=== PATIENT | male | born 1950 | race Caucasian/White ===

== ENCOUNTER 2021-12-20 11:11 | Outpatient (CLI) | payer MEDICARE, BC ==
[2021-12-20 12:31] LABS: #Basophils 0.1 10x3/uL (0.0-0.2); #Eosinphils 0.3 10x3/uL (0.0-0.5); #Monocytes 0.7 10x3/uL (0.0-1.1); #Neutrophils 4.4 10x3/uL (1.5-8.4); %Basophils 0.8 % (0.0-2.0); %Eosinophils 3.9 % (0.0-6.0); %Lymphocytes 24.4 % (18.0-47.0); %Monocytes 9.3 % (0.0-10.0); %Neutrophils 61.3 % (40.0-75.0); Hemoglobin 15.8 g/dL (13.5-17.5); Mean Corpuscular HGB CONC 33.5 g/dL (32.0-36.0); Mean Corpuscular Hemoglobin 31.4 pg (27.0-33.0); Mean Corpuscular Volume 93.8 fl (81.2-95.1); Mean Platelet Volume 9.6 fl (7.4-10.4); Platelet Count 271 10x3/uL (150-450); RBC Distribution Width 12.7 % (11.5-14.5); Red Blood Cell (RBC) Count 5.03 10x6/uL (4.32-5.72); White Blood Cell (WBC) Count 7.2 10x3/uL (3.5-10.5)
[2021-12-20 12:48] LABS: Anion Gap 14 mmol/L (10-20); BUN (Urea Nitrogen) 35 mg/dL (8.4-25.7); Calc. Creatinine Clearance 0 mL/min (70-130); Calcium 9.3 mg/dL (7.8-10.44); Carbon Dioxide 28 mmol/L (23-31); Chloride 102 mmol/L (98-107); Glucose 108 mg/dL (83-110); Potassium 5.1 mmol/L (3.5-5.1); Sodium 139 mmol/L (136-145)
[2021-12-20 22:06] LABS: SARS-CoV-2 PCR by NAA Not Detected (NotDetected)
== END 2021-12-20 11:12 | disposition home or self-care (01) ==
LOC: LABBT 11:11
PROVIDERS: ATTEND Orthopaedic Surgery
DX: Z01.818 Encounter for other preprocedural examination (principal); M23.42 Loose body in knee, left knee; Z20.822 Contact with and (suspected) exposure to COVID-19
CPT/HCPCS: 80048; 85025; 93005; U0003; U0005; 93010

== ENCOUNTER 2021-12-25 09:01 | Day surgery (SDC) | payer MEDICARE, BC ==
[2021-12-21 10:55] VITALS: BMI 19.5
[2021-12-25] MEDS ORDERED: Midazolam HCl 2 mg/2 ml Vial ONE ×2 (09:39→10:00)
[2021-12-25] MEDS ORDERED: Fentanyl 100 MCG/2 ML VIAL ONE (10:00)
[2021-12-25] MEDS ORDERED: Lidocaine 2% w/Epinephrine 1:200K 20 ML VIAL ONE ×2 (10:01→11:16)
[2021-12-25] MEDS ORDERED: Fentanyl 250 MCG/5 ML VIAL ONE (10:57)
[2021-12-25] MEDS ORDERED: ceFAZolin (BATCH) 2 GM/100 ML BAG ONE (11:03)
[2021-12-25] MEDS ORDERED: Bupivacaine HCl 0.5%/Epinephrine 1:200,000/PF 30 ml Vial ONE (11:16)
[2021-12-25] MEDS ORDERED: ePHEDrine 50 MG/ML VIAL ONE (11:16)
[2021-12-25] MEDS ORDERED: Ondansetron PF 4 MG/2 ML Vial ONE ×2 (11:16→11:33)
[2021-12-25] MEDS ORDERED: PROPOFOL 200 MG/20 ML VIAL ONE (11:16)
[2021-12-25] MEDS ORDERED: ePHEDrine Sulfate 50 MG/10 ML VIAL ONE (11:33)
== END 2021-12-25 14:22 | disposition home or self-care (01) ==
LOC: SDC 09:01
PROVIDERS: ATTEND Orthopaedic Surgery
PROC: 0SBD4ZZ Excision of Left Knee Joint, Percutaneous Endoscopic Approach (ICD-10-PCS; principal; 2021-12-25)
PROC: 0SCD4ZZ Extirpation of Matter from Left Knee Joint, Percutaneous Endoscopic Approach (ICD-10-PCS; 2021-12-25)
DX: M23.8X2 Other internal derangements of left knee (principal); M23.42 Loose body in knee, left knee; E78.5 Hyperlipidemia, unspecified; M19.90 Unspecified osteoarthritis, unspecified site; Z79.899 Other long term (current) drug therapy
CPT/HCPCS: J0690; J2250; J2405; J2704; J3010; J3490

== ENCOUNTER 2023-06-03 09:17 | Outpatient (CLI) | payer MEDICARE, BC ==
[2023-06-03 11:49] LABS: #Basophils 0.1 10x3/uL (0.0-0.2); #Eosinphils 0.1 10x3/uL (0.0-0.5); #Monocytes 0.6 10x3/uL (0.0-1.1); #Neutrophils 2.4 10x3/uL (1.5-8.4); %Basophils 1.6 % (0.0-2.0); %Lymphocytes 27.3 % (18.0-47.0); %Monocytes 13.3 % (0.0-10.0); %Neutrophils 54.8 % (40.0-75.0); Hematocrit 47.6 % (38.8-50.0); Hemoglobin 15.9 g/dL (13.5-17.5); Mean Corpuscular HGB CONC 33.4 g/dL (32.0-36.0); Mean Corpuscular Hemoglobin 31.7 pg (27.0-33.0); Mean Platelet Volume 9.5 fl (7.4-10.4); Platelet Count 240 10x3/uL (150-450); RBC Distribution Width 12.9 % (11.5-14.5); Red Blood Cell (RBC) Count 5.01 10x6/uL (4.32-5.72); White Blood Cell (WBC) Count 4.4 10x3/uL (3.5-10.5)
[2023-06-03 12:05] LABS: ALT (SGPT) 23 U/L (8-55); AST (SGOT) 31 U/L (5-34); Albumin 3.9 g/dL (3.4-4.8); Alkaline Phosphatase 74 U/L (40-110); Anion Gap 14 mmol/L (10-20); BUN (Urea Nitrogen) 28 mg/dL (8.4-25.7); Bilirubin, Total 0.6 mg/dL (0.2-1.2); Calc. Creatinine Clearance 0 mL/min (70-130); Carbon Dioxide 26 mmol/L (23-31); Chloride 101 mmol/L (98-107); Estimated GFR 93; Globulin 2.6 g/dL (2.4-3.5); Glucose 95 mg/dL (83-110); Potassium 4.6 mmol/L (3.5-5.1); Protein, Total 6.5 g/dL (5.8-8.1); Sodium 136 mmol/L (136-145)
== END 2023-06-03 09:18 | disposition home or self-care (01) ==
LOC: LABBT 09:17
PROVIDERS: ATTEND Surgery
DX: Z01.818 Encounter for other preprocedural examination (principal); K42.9 Umbilical hernia without obstruction or gangrene; K40.20 Bilateral inguinal hernia, without obstruction or gangrene, not specified as recurrent
CPT/HCPCS: 80053; 85025; 93005; 93010

== ENCOUNTER 2023-06-07 06:56 | Day surgery (SDC) | payer MEDICARE, BC ==
[2023-06-03 10:07] VITALS: BMI 19.8
[2023-06-07] MEDS ORDERED: Midazolam HCl 2 mg/2 ml Vial ONE (07:39)
[2023-06-07] MEDS ORDERED: fentaNYL PF 100 MCG/2 ML SYRINGE ONE (07:39)
[2023-06-07] MEDS ORDERED: Bupivacaine 0.25% HCL 30 ML VIAL ONE (07:40)
[2023-06-07] MEDS ORDERED: EPINEPHrine 1 MG/ML AMP ONE (07:40)
[2023-06-07] MEDS ORDERED: SUGAMMADEX SODIUM 200 MG/2 ML VIAL ONE (07:48)
[2023-06-07] MEDS ORDERED: CEFAZOLIN 2 GM VIAL ONE (07:48)
[2023-06-07] MEDS ORDERED: Lidocaine 4% Topical Sol 50 ML BOT ONE (07:48)
[2023-06-07] MEDS ORDERED: Sodium Chloride 0.9% 100 ML ONE (07:48)
[2023-06-07] MEDS ORDERED: PHENYLEPHRINE-NS 100 MCG/ML 10 ML SYRINGE ONE (07:57)
[2023-06-07] MEDS ORDERED: Ondansetron PF 4 MG/2 ML Vial ONE (07:57)
[2023-06-07] MEDS ORDERED: PROPOFOL 200 MG/20 ML VIAL ONE (07:57)
[2023-06-07] MEDS ORDERED: Lidocaine 1% PF 5 ML VIAL ONE (07:57)
[2023-06-07] MEDS ORDERED: Dexamethasone 20 MG/5 ML VIAL ONE (07:57)
[2023-06-07] MEDS ORDERED: Rocuronium Bromide 10 MG/ML (10ML VIAL) ONE (07:57)
[2023-06-07] MEDS ORDERED: fentaNYL 50 mcg/mL 1 mL Vial ONE ×2 (09:46→09:54)
== END 2023-06-07 12:43 | disposition home or self-care (01) ==
LOC: SDC 06:56
PROVIDERS: ATTEND Surgery
PROC: 0YU Anatomical Regions, Lower Extremities, Supplement (ICD-10-PCS; principal; 2023-06-07)
DX: K42.9 Umbilical hernia without obstruction or gangrene (principal); K40.20 Bilateral inguinal hernia, without obstruction or gangrene, not specified as recurrent; E78.5 Hyperlipidemia, unspecified; Z96.641 Presence of right artificial hip joint; Z98.890 Other specified postprocedural states; Z79.899 Other long term (current) drug therapy
CPT/HCPCS: 49650; A4314; C1781 ×2; J3010; J0171; J1100; J2250; J2405; J2704; J3490; S0020

== ENCOUNTER 2025-04-22 08:47 | Outpatient (CLI) | payer MEDICARE | END 2025-04-22 08:48 | disposition home or self-care (01) | LOC: BICRAD 08:47 | PROVIDERS: ATTEND Orthopaedic Surgery | DX: M41.9 Scoliosis, unspecified (principal) | CPT/HCPCS: 72070; 72120 ==